=== PATIENT | female | born 1970 | race Caucasian/White ===

== ENCOUNTER 2017-10-22 19:52 | Emergency (ER) | payer OTHER ==
[~2017-10-22] VITALS: Ht 162.6 cm; Wt 70.3 kg
--- NOTE | 2017-10-22 20:05 | NUR ---
TO BED 8 A 46 YO FEMALE PATIENT BIBSELF C/O "RT PELVIC PAIN X3 DAYS WITH N/V." VSS. NAD NOTED. NONDIAPHORETIC. GOWNED. COMFORT MEASURES RENDERED.
[2017-10-22] MEDS ORDERED: ONDANSETRON HCL/PF - ER 4 MG/2 ML VIAL IV ONE (20:30)
[2017-10-22] MEDS ORDERED: MORPHINE SULFATE INJ 2 MG/ML DISP.SYRIN IV ONE (20:30)
[2017-10-22 20:36] LABS: APPEARANCE,URINE Cloudy (CLEAR); BILIRUBIN,URINE Negative (NEGATIVE); BLOOD, URINE Large Ery/uL (NEGATIVE); COLOR,URINE Amber (YELLOW); KETONES,URINE Negative (NEGATIVE); LEUKOCYTE ESTERASE ,URINE Negative (NEGATIVE); NITRITE, URINE Negative (NEGATIVE); PROTEIN,URINE 30 mg/dl (NEGATIVE); UGLUCOSE Negative (NEGATIVE); UROBILINOGEN,URINE 0.2 EU/dL (0.2)
[2017-10-22] MEDS ORDERED: MORPHINE SULFATE INJ 10 MG/ML DISP.SYRIN IM ONE (21:00)
[2017-10-22] MEDS ORDERED: PROMETHAZINE HCL 50 MG/ML AMPUL IM ONE (21:00)
[2017-10-22 21:01] LABS: BASOPHILS # (AUTO) 0.1 /CMM (0.0-0.2); BASOPHILS % (AUTO) 0.9 % (0.0-2.0); EOSINOPHILS # (AUTO) 0.3 /CMM (0.0-0.7); EOSINOPHILS % (AUTO) 2.3 % (0.0-6.0); HEMATOCRIT 35 % (33-45); HEMOGLOBIN 11.9 g/dL (11.5-14.8); LYMPHOCYTES # (AUTO) 3.6 /CMM (0.8-4.8); LYMPHOCYTES % (AUTO) 32.6 % (20.0-44.0); MEAN CORPUSCULAR HEMOGLOBIN 26 PG (26.0-33.0); MEAN CORPUSCULAR HGB CONC 34 g/dl (31.0-36.0); MEAN CORPUSCULAR VOLUME 78 fL (82-100); MONOCYTES # (AUTO) 0.5 /CMM (0.1-1.30); MONOCYTES % (AUTO) 4.9 % (2.0-12.0); NEUTROPHILS # (AUTO) 6.5 /CMM (1.8-8.9); NEUTROPHILS % (AUTO) 59.3 % (43.0-81.0); PLATELET COUNT (AUTO) 363 /CMM (150-450); RDW COEFFICIENT OF VARIATION 14.6 (11.5-15.0); RED BLOOD CELL COUNT(AUTO) 4.51 MIL/uL (4.0-5.2)
[2017-10-22] MEDS ORDERED: MORPHINE SULFATE INJ 4 MG/ML DISP.SYRIN ONE (21:01)
[2017-10-22] MEDS ORDERED: PROMETHAZINE HCL 25 MG/ML AMPUL ONE (21:01)
[2017-10-22 21:03] LABS: BACTERIA,URINE Few /HPF (None Seen); RBC,URINE TOO NUMEROUS TO COUN /HPF (0-2); SQUAMOUS EPITHELIAL CELL,UR Moderate /HPF (None Seen); URINE AMORPHOUS URATE Few /HPF (None Seen)
--- NOTE | 2017-10-22 21:05 | NUR ---
UNABLE TO INSERT SALINE LOCK AT THIS TIME. PATIENT IS HARD STICK. DR BEYER NOTIFIED.
--- NOTE | 2017-10-22 21:11 | NUR ---
MEDICATED PATIENT ORDERED BY DR BEYER.
[2017-10-22 21:17] LABS: ALBUMIN 3.9 g/dL (3.4-5.0); BILIRUBIN,TOTAL 0.2 mg/dL (0.2-1.0); CALCIUM, SERUM 8.9 mg/dL (8.5-10.1); CREATININE 0.6 mg/dL (0.6-1.3); POTASSIUM 3.5 mmol/L (3.5-5.1); TOTAL PROTEIN, SERUM 8.1 g/dL (6.4-8.2)
--- NOTE | 2017-10-22 21:18 | NUR ---
PATIENT TO RADIOLOGY.
--- NOTE | 2017-10-22 22:11 | NUR ---
Patient discharged to home in stable condition. Written and verbal after care instructions given. Patient verbalizes understanding of instruction. Patient is ambulatory with steady gait, accompanied by family. Instructed patient not to drive. vss. nad on dc. No further complaints.
[2017-10-22 22:12] VITALS: BP 118/80
== END 2017-10-22 22:13 | disposition home or self-care (01) ==
LOC: ER 19:52
DX: R10.31 Right lower quadrant pain (principal); G40.909 Epilepsy, unspecified, not intractable, without status epilepticus; G47.00 Insomnia, unspecified; Z88.8 Allergy status to other drugs, medicaments and biological substances; Z90.49 Acquired absence of other specified parts of digestive tract; Z95.0 Presence of cardiac pacemaker; Z98.890 Other specified postprocedural states; Z88.6 Allergy status to analgesic agent
CPT/HCPCS: 36415; 71045; 74176; 80048; 80076; 81001; 83690; 84703; 85025; 96372 ×2; 99285; A4606; J2270; J2405; J2550; Z7610; 81000-TC

== ENCOUNTER 2019-02-27 17:49 | Inpatient (IN) | payer OTHER ==
[~2019-02-27] VITALS: Ht 162.6 cm; Wt 74.4 kg
[2019-02-27 21:45] VITALS: BP 102/67
--- NOTE | 2019-02-27 21:45 | NUR ---
RECEIVED PATIENT FROM [facility] FOR DX INTRACTABLE ABDOMINAL PAIN. PATIENT BROUGHT IN BY [facility] VIA GURNEY. PATIENT AO X 3, ABLE TO MAKE NEEDS KNOWN. NO ACUTE DISTRESS NOTED. MONITORED FOR PAIN. IV SITE PATENT, INTACT; FLUSHED. SKIN INTACT. SAFETY REMINDERS GIVEN. ON LOW BED WITH BILATERAL UPPER SIDE RAILS UP. CALL FRANCISCO WITHIN EASY REACH. WAITING FOR ADMISSION ORDERS FROM DR. RICHARDS.
[2019-02-27] MEDS ORDERED: DIAZ10TA4 PO (22:05)
[2019-02-27] MEDS ORDERED: QUET400T5 PO (22:05)
[2019-02-27] MEDS ORDERED: FURO-145 PO (22:05)
[2019-02-27] MEDS ORDERED: GABA600T12 PO (22:05)
[2019-02-27] MEDS ORDERED: CLON0.1T PO (22:05)
[2019-02-27 22:15] VITALS: BP 102/67
[2019-02-27] MEDS ORDERED: ONDANSETRON HCL/PF 4 MG/2 ML VIAL IVP PRN (23:00)
[2019-02-27] MEDS ORDERED: MAG HYDROX/AL HYDROX/SIMETH 30 ML UDC PO PRN (23:00)
[2019-02-27] MEDS ORDERED: MAGNESIUM HYDROXIDE 30 ML UDC PO PRN (23:00)
[2019-02-27] MEDS ORDERED: ACETAMINOPHEN 325 MG TABLET PO PRN (23:00)
[2019-02-27] MEDS: LACTULOSE 10 G/15 ML UDC (PYXIS) PO SCH (23:25)
[2019-02-27] MEDS: MORPHINE SULFATE INJ 2 MG/ML DISP.SYRIN IV PRN (23:51)
--- NOTE | 2019-02-28 | NUR ---
DR. RICHARDS MADE AWARE OF PATIENT'S REQUESTS. PER , NO BENADRYL IV BUT MAY HAVE BENADRYL PO. PATIENT REJECTED BENADRYL PO ORDER. SAID NO TO DILAUDID IV; MORPHINE KEPT ORDERED. DR. RICHARDS AWARE THAT PATIENT WAS UNABLE TO TOLERATE LACTULOSE. PATIENT REFUSED ORDER OF PHENERGAN PO.
[2019-02-28] MEDS: IV D5/0.45 NACL 1,000 ML IV PRN (00:03)
[2019-02-28] MEDS: MORPHINE SULFATE INJ 2 MG/ML DISP.SYRIN IV PRN ×4 (03:58→16:57)
[2019-02-28] MEDS: LACTULOSE 10 G/15 ML UDC (PYXIS) PO SCH ×2 (05:00→11:34)
--- NOTE | 2019-02-28 06:22 | NUR ---
PATIENT AWAKE. RESPIRATIONS EVEN. MONITORED FOR PAIN. IVF INFUSING ORDERED. NEEDS ATTENDED. SAFETY PRECAUTIONS AND COMFORT MEASURES IN PLACE. WILL GIVE REPORT TO DAY SHIFT FOR CONTINUITY OF CARE.
--- NOTE | 2019-02-28 07:10 | NUR ---
MS RN NOTES PATIENT IN BED ALERT ORIENTED X 4. NO ACUTE DISTRESS NOTED. BREATHING UNLABORED. NO SOB NOTED. DENIED PAIN AT THIS TIME. IV ACCESS PATENT AND INTACT, NO REDNESS OR SWELLING NOTED. SAFETY MEASURES IN PLACE. CALL LIGHT WITHIN REACH. WILL CONTINUE TO MONITOR ACCORDINGLY.
[2019-02-28 08:00] VITALS: BP 111/62
[2019-02-28] MEDS ORDERED: ACET-868 PO (08:23)
--- NOTE | 2019-02-28 14:00 | NUR ---
MS RN NOTES FOLLOWED UP WITH PEARL HAND JOS KC REGARDING HOME MEDICATION RECONCILIATION NEEDS DONE.
[2019-02-28] MEDS: diphenhydrAMINE HCL 50 MG/ML VIAL IV PRN ×2 (14:17→20:17)
[2019-02-28] MEDS ORDERED: DIATR MEGLU/DIATRIZOATE SODIUM 120 ML BOTTLE (GASTROGRAPHIN) ONE (15:18)
[2019-02-28 16:00] VITALS: BP 111/63
[2019-02-28] MEDS ORDERED: LACTULOSE 10 G/15 ML UDC (PYXIS) PR SCH (17:00)
[2019-02-28] MEDS: LORAZEPAM INJ 2 MG/ML VIAL IV PRN (17:45)
[2019-02-28] MEDS ORDERED: LACTULOSE UDC 200 G in SODIUM CHLORIDE IRRIG SOLUTION 400 ML IR SCH (18:00)
--- NOTE | 2019-02-28 18:18 | NUR ---
MS RN NOTES RECEIVED NEW ORDERS FROM ALICIA KC WITH ORDERS TO DC LACTULOSE AR ORDER CHANGE TO DULCOLAX SUPP ONCE, FLEET MINERAL OIL ENEMA IF DULCOLAX DOESNT WORK ONCE AND TAP WATER ENEMA CHANGE IF MINERAL OIL ENEMA DOESN'T WORK ONCE, NOTED AND CARRIED OUT.
[2019-02-28] MEDS ORDERED: BISACODYL SUPP (10 MG) 10 MG/SUPP.RECT SUPP.RECT RC ONE (18:30)
[2019-02-28] MEDS ORDERED: MINERAL OIL 133 ML (PYXIS) 1 EA ENEMA RC ONE (18:30)
[2019-02-28] MEDS ORDERED: MISCELLANEOUS MED 1 EA EA XX ONE (18:30)
[2019-02-28] MEDS ORDERED: ACETAMINOPHEN 650 MG/SUPP.RECT RC PRN (18:30)
--- NOTE | 2019-02-28 18:33 | NUR ---
MS RN NOTES SEEN AND EVALUATED BY CREDENTIALER CHRISTOPH AWAN CREDENTIALER, PATIENT JUST HAD A BOWEL MOVEMENT, RECEIVED NEW ORDERS FOR COLACE AND MIRALAX AND DO NOT ADMINISTER DULCOLAX FROM CHRISTOPH AWAN CREDENTIALER, NOTED AND CARRIED OUT. NOTIFIED ALICIA KC WITH ORDERS TO CHANGE PREVIOUS ORDERS FOR DULCOLAX, FLEET MINERAL OIL ENEMA AND TAP WATER ENEMA CHANGE TO PRN, NOTED AND CARRIED OUT.
--- NOTE | 2019-02-28 18:45 | NUR ---
MS RN NOTES TRANSFER PATIENT TO ROOM 320-1 IN STABLE CONDITION, REPORT GIVEN TO ELIZABETH RN. ALL BELONGINGS BROUGHT WITH PATIENT.
[2019-02-28] MEDS ORDERED: POLYETHYLENE GLYCOL 3350 17 GM POWD.PACK PO PRN (19:00)
[2019-02-28] MEDS ORDERED: BISACODYL SUPP (10 MG) 10 MG/SUPP.RECT SUPP.RECT RC PRN (19:30)
[2019-02-28] MEDS ORDERED: MISCELLANEOUS MED 1 EA EA XX PRN (19:30)
[2019-02-28] MEDS ORDERED: MINERAL OIL 133 ML (PYXIS) 1 EA ENEMA RC PRN (19:30)
--- NOTE | 2019-02-28 19:50 | NUR ---
MS RN OPENING NOTES: RECEIVED PT FROM [facility]. SIGNIFICANT MEMBER AT BEDSIDE. PT HAS IV AND PT IS REQUESTING FOR A BREAK TO BE INFUSING WITH IV D51/2 NS AT 75ML/HR. PT IS REQUESTING FOR PAIN MEDICATION SPECIFICALLY MORPHINE. INFORMED HER THAT MORPHINE HAS BEEN DISCONTINUED BY COURT CRIER JOS KC. PT IS VERBALIZING THAT SHE IS STILL HAVE ABDOMINAL 8/10 PAIN. ALSO, PT IS VERBALIZING THAT THE BOWEL MOVEMENT SHE HAD EARLIER WAS "HARD." NO SOB NOTED. BED KEPT IN LOW, LOCKED POSITION, AND SIDE RAILS X 2UP. WILL CONTINUE TO MONITOR PT.
[2019-02-28 20:00] VITALS: BP 103/68
--- NOTE | 2019-02-28 20:18 | NUR ---
MS RN NOTES: PT COMPLAINING OF FEELING NAUSEOUS AND THAT BENADRYL IS THE ONLY THING THAT WORKS FOR HE SHE IS ALLERGIC TO ZOFRAN. PT WAS ADMINISTERED BENADRYL 25MG IV. WILL CONTINUE TO MONITOR.
[2019-02-28] MEDS: HYDROCODONE/APAP 5/325MG 1 EACH TABLET PO PRN (20:55)
--- NOTE | 2019-02-28 20:56 | NUR ---
MS RN NOTES: PT COMPLAINING OF 8/10 AB PAIN AND IS CRYING. PT WANTS SOMETHING FOR PAIN. PT UPSET THAT MORPHINE WAS DISCONTINUED. EXPLAINED TO HER THE REASON FOR THAT. ALSO EXPLAINED TO HER THAT NORCO WILL CAUSE CONSTIPATION. WHEN ASKED PT IF SHE IS HAVING CONSTIPATION, "I'M NOT CONSTIPATED." PT STILL WANTS NORCO. PT WAS ADMINISTERED NORCO 5 PO. INFORMED HER THAT I CAN OFFER HER A SUPPOSITORY. PT DOES NOT WANT IT. WILL CONTINUE TO MONITOR.
--- NOTE | 2019-02-28 21:38 | NUR ---
MS RN NOTES: PT IS CLAIMING THAT SHE HAD PAGED FOR ME. WHEN ASKED BUSINESS INTELLIGENCE ETL DEVELOPER UP FRONT, NOBODY FROM [facility] CALLED. PT WAS VERBALIZING THAT SHE CALLED FOR ME AND THAT SHE HAD THREW UP AND SHE HAS FLUSHED IT ALREADY. PT WAS GIVEN ICE CHIPS.
--- NOTE | 2019-02-28 22:22 | NUR ---
MS RN NOTES: INFORMED DR. MAURICE Collado THAT PT IS SAYING THAT NORCO IS NOT WORKING FOR HER AND THAT SHE IS WONDERING WHY THE MORPHINE GOT DISCONTINUED. EXPLAINED TO HER THAT TUNNEL KILN REPAIRER YAMINI DISCONTINUED THE MORPHINE AND THAT FOLLOW THROUGH WAS NEGATIVE . DR. MAURICE Collado DOES NOT WANT TO ORDER ANY IV PAIN MEDS. DR. RICHARDS ALSO DOES NOT WANT TO CONTINUE TO THE SEROQUEL 400MG FOR SLEEP. Addendum: 02/28/19 at 1 by VENUS BAINS RN PER DR. MAURICE Collado, NO NEW ORDERS AT THIS TIME.
[2019-03-01 00:03] VITALS: BP 120/66
[2019-03-01] MEDS: LORAZEPAM INJ 2 MG/ML VIAL IV PRN ×3 (00:04→12:12)
--- NOTE | 2019-03-01 00:07 | NUR ---
MS RN NOTES: PT FEELING VERY ANXIOUS AND IS NOT ABLE TO SLEEP. PT WAS ADMINISTERED ATIVAN 0.5MG IV. WILL CONTINUE TO MONITOR.
[2019-03-01 01:02] VITALS: BP 109/77
[2019-03-01] MEDS: HYDROCODONE/APAP 5/325MG 1 EACH TABLET PO PRN ×2 (01:04→08:42)
--- NOTE | 2019-03-01 01:05 | NUR ---
MS RN NOTES: PT COMPLAINING OF ALL OVER ABDOMEN PAIN 05/17. PT WAS ADMINISTERED NORCO 5 PO. ALSO EXPLAINED TO PT THAT SIDE EFFECTS OF THIS MEDICATION CAUSES CONSTIPATION BUT PT IS STILL ADAMANT ABOUT TAKING IT SHE IS IN PAIN AND CANNOT SLEEP. INFORMED PT WELL THAT THERE ARE PRN MEDICATIONS THAT CAN BE ADMINISTERED TO HER IF SHE FEELS CONSTIPATED. WILL CONTINUE TO MONITOR.
[2019-03-01 02:02] VITALS: BP 110/71
[2019-03-01] MEDS: diphenhydrAMINE HCL 50 MG/ML VIAL IV PRN ×2 (02:18→08:45)
--- NOTE | 2019-03-01 02:21 | NUR ---
MS RN NOTES: PT COMPLAINING OF ITCHINESS ALL OVER HER BODY AND VERBALIZES "PRIMARILY MY VAGINA." PT WAS ADMINISTERED BENADRYL 25MG IV. WILL CONTINUE TO MONITOR.
[2019-03-01] MEDS: IV D5/0.45 NACL 1,000 ML IV PRN (03:01)
[2019-03-01 06:05] VITALS: BP 117/72
--- NOTE | 2019-03-01 06:13 | NUR ---
MS RN NOTES: PT WAKING UP AND FEELING ANXIOUS. SHE SAYS SHE GETS PANIC ATTACKS WHILE IN THE HOSPITAL. PT WAS ADMINISTERED ATIVAN 0.5MG IV. WILL CONTINUE TO MONITOR. PT ALSO WANTS TO BE DISCONNECTED FROM IV FLUIDS FOR NOW SHE WOULD LIKE TO BE RELIEVED FOR SOME TIME.
--- NOTE | 2019-03-01 06:14 | NUR ---
RN NOTES: URINE COLLECTED AND PLACED IN REFRIGERATOR.
--- NOTE | 2019-03-01 06:41 | NUR ---
MS RN CLOSING NOTES: ALL NEEDS WERE ATTENDED AND ANTICIPATED FOR. PT KEPT CLEAN, DRY, AND COMFORTABLE. PT SITTING UP AND ON HER PHONE AT THIS TIME. IV REMAINS INTACT IN R AC. PT NOT CONNECTED RIGHT NOW AND WOULD LIKE TO BE CONNECTED AT A LATER TIME. BED KEPT IN LOW, LOCKED POSITION, AND SIDE RAILS X 2UP. WILL ENDORSE TO AM NURSE FOR ENA. Addendum: 03/01/19 at 0716 by VENUS BAINS RN MENTIONED TO PT AGAIN THAT SHE HAS PRN MEDICATIONS TO HELP HER HAVE A BM. PT REFUSING AT THIS TIME.
--- NOTE | 2019-03-01 07:28 | NUR ---
MS RN OPENING NOTES RECEIVED PT RESTING IN BED. AWAKE A/O X4. TOLERATING RA, WITH NO ACUTE RESPIRATORY DISTRESS NOTED. PT DENIES PAIN AT THIS MOMENT. PT ALSO DENIES ANY CONCERNS OR ANY QUESTIONS AT THIS TIME.IVF D5 1/2 NS AT 75ML/HR TO RAC G20, INTACT AND FLUID INFUSING WELL. PT KEPT COMFORTABLE. PT'S BED IN LOWEST, LOCKED POSITION WITH SR X2. CALL LIGHT AND FLUID WITHIN REACH WILL CONTINUE PLAN OD CARE.
[2019-03-01 08:00] VITALS: BP 112/71
[2019-03-01 08:05] LABS: APPEARANCE,URINE SL CLOUDY (CLEAR); BILIRUBIN,URINE NEGATIVE (NEGATIVE); BLOOD, URINE NEGATIVE Ery/uL (NEGATIVE); COLOR,URINE DARK YELLO (YELLOW); KETONES,URINE NEGATIVE (NEGATIVE); LEUKOCYTE ESTERASE ,URINE NEGATIVE (NEGATIVE); NITRITE, URINE NEGATIVE (NEGATIVE); PH,URINE 6.5 (5.0-8.0); PROTEIN,URINE TRACE mg/dl (NEGATIVE); UGLUCOSE NEGATIVE (NEGATIVE); UROBILINOGEN,URINE 0.2 EU/dL (0.2)
[2019-03-01 08:14] LABS: BACTERIA,URINE Rare /HPF (None Seen); CALCIUM OXALATE CRYSTALS,UR Few /HPF (None Seen); MUCUS,URINE Moderate /LPF (None Seen); RBC,URINE NONE SEEN /HPF (0-2); SQUAMOUS EPITHELIAL CELL,UR Few /HPF (None Seen); WBC,URINE 0-2 /HPF (0-3)
[2019-03-01] MEDS ORDERED: DOCUSATE SODIUM 100 MG CAPSULE PO SCH (09:00)
--- NOTE | 2019-03-01 13:25 | NUR ---
MS LINE DANCER NOTES PT TO DISCHARGE HOME PER REQUEST. POLITICAL SCIENCE CHAIR AP AWARE AND OKAY WITH IT. DISCHARGE NOTES SIGNED BY POLITICAL SCIENCE CHAIR AP. PT TOLERATING RA WITH NO ACUTE RESPIRATORY DISTRESS NOTED. PT DENIES ANY PAIN AT THE MOMENT. PT'S SKIN INTACT; REFUSES TO TAKE ANY PICTURES FOR BRUISE ON RAC NEAR IV SITE. PIV TO RAC REMOVED BY JOSEPHINE/HORACIO AND APPLIED DRY DRESSING. REVIEWED AND SIGNED DISCHARGE INSTRUCTIONS AND INVENTORY LIST. ALL BELONGINGS WITH THE PT.ALL NEEDS AND CARE PROVIDED. PT ACCOMPANIED BY . PT LEFT THE UNIT AT 1315, ESCORTED TO THE LOBBY BY RN/ME. LONNIE AND POLITICAL SCIENCE CHAIR/AP AWARE OF DISCHARGE.
== END 2019-03-01 13:10 | disposition home or self-care (01) | DRG 254 ==
LOC: MEDSG2 21:38 → MED 02-28 18:23
PROVIDERS: ATTEND Hospitalist
DX: K58.1 Irritable bowel syndrome with constipation (principal); G40.909 Epilepsy, unspecified, not intractable, without status epilepticus; G47.00 Insomnia, unspecified; Z95.0 Presence of cardiac pacemaker; Z90.49 Acquired absence of other specified parts of digestive tract; Z76.5 Malingerer [conscious simulation]; Z91.14 Patient's other noncompliance with medication regimen; Z91.041 Radiographic dye allergy status
CPT/HCPCS: 74250-TC; 81000-TC; 84703-TC; 87081-TC; G0378; J1200; J2060; J2270; J3490; J7042; Q9963

== ENCOUNTER 2019-03-03 11:39 | Emergency (ER) | payer OTHER ==
[~2019-03-03] VITALS: Ht 162.6 cm; Wt 72.6 kg
[~2019-03-03 11:39] MED LIST: ACET-868 PO; CLON0.1T PO; DIAZ10TA4 PO; FURO-145 PO; GABA600T12 PO; QUET400T5 PO
[2019-03-03 11:45] VITALS: BP 125/74
--- NOTE | 2019-03-03 12:07 | NUR ---
CALLED , TRANSFERRED CALL TO .
--- NOTE | 2019-03-03 12:28 | NUR ---
Patient discharged to home in stable condition. Written and verbal after care instructions given. Patient verbalizes understanding of instruction.
== END 2019-03-03 12:27 | disposition home or self-care (01) ==
LOC: ER 11:41
DX: K59.00 Constipation, unspecified (principal); I49.9 Cardiac arrhythmia, unspecified; Z95.0 Presence of cardiac pacemaker; Z90.49 Acquired absence of other specified parts of digestive tract; Z88.6 Allergy status to analgesic agent; Z88.8 Allergy status to other drugs, medicaments and biological substances; Z79.899 Other long term (current) drug therapy

== ENCOUNTER 2019-05-03 08:35 | Emergency (ER) | payer OTHER ==
[~2019-05-03] VITALS: Ht 165.1 cm; Wt 72.6 kg
[2019-05-03] MEDS ORDERED: VANCOMYCIN 1 GM in IV D5W 250 ML IV ONE (09:00)
[2019-05-03] MEDS ORDERED: DIPHENHYDRAMINE HCL 12.5 MG/5 ML UDC PO ONE (09:00)
--- NOTE | 2019-05-03 09:00 | NUR ---
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 On room air, breathing evenly and unlabored. Connected to the monitor and pulse ox. Ambulatory with steady gait. Kept comfortable, will continue to monitor accordingly.
[2019-05-03] MEDS ORDERED: diphenhydrAMINE HCL 25 MG CAPSULE ONE (09:01)
[2019-05-03] MEDS ORDERED: diphenhydrAMINE HCL 50 MG/ML VIAL ONE (09:04)
[2019-05-03] MEDS ORDERED: PROMETHAZINE HCL 25 MG TABLET PO ONE (10:30)
--- NOTE | 2019-05-03 11:45 | NUR ---
IV removed. Catheter intact and site benign. Pressure and 4x4 applied to site. No bleeding noted. Patient discharged to home in stable condition. Written and verbal after care instructions given. Patient verbalizes understanding of instruction.
[2019-05-03 12:00] VITALS: BP 119/82
== END 2019-05-03 12:40 | disposition home or self-care (01) ==
LOC: ER 08:40
DX: L03.032 Cellulitis of left toe (principal); L03.031 Cellulitis of right toe; Z95.0 Presence of cardiac pacemaker; Z90.49 Acquired absence of other specified parts of digestive tract; Z88.6 Allergy status to analgesic agent; Z88.8 Allergy status to other drugs, medicaments and biological substances; Z79.899 Other long term (current) drug therapy
CPT/HCPCS: 96365; 99283; J1200; J3370; J7060; Q0163 ×2; Q0169

== ENCOUNTER 2019-05-13 11:26 | Emergency (ER) | payer OTHER ==
[~2019-05-13] VITALS: Ht 162.6 cm; Wt 72.6 kg
--- NOTE | 2019-05-13 11:51 | NUR ---
patient came in to the ER with the c/c of chest pressure started around 945am, non radiating. On room air, breathing evenly and unlabored. Connected to the monitor and pulse ox. kept comfortable, will continue to monitor accordingly.
[2019-05-13] MEDS ORDERED: ONDANSETRON HCL/PF 4 MG/2 ML VIAL IV ONE (12:00)
[2019-05-13] MEDS ORDERED: diphenhydrAMINE HCL 50 MG/ML VIAL IV ONE (12:00)
[2019-05-13] MEDS ORDERED: IV NS 0.9% 1,000 ML BAG IV ONE (12:00)
[2019-05-13] MEDS ORDERED: ONDANSETRON HCL/PF 4 MG/2 ML VIAL ONE ×2 (13:17→14:29)
[2019-05-13] MEDS ORDERED: diphenhydrAMINE HCL 50 MG/ML VIAL ONE (13:17)
[2019-05-13] MEDS ORDERED: MORPHINE SULFATE INJ 2 MG/ML DISP.SYRIN ONE ×2 (13:39→15:41)
--- NOTE | 2019-05-13 13:45 | NUR ---
PATIENTAWAKE ALERT PAIN TO ABDOMEN NOTED MULTIPLE BRUISES TO BILATERAL STATED PREVIOUS IV INSERTION ,PATIENT IS DIFFICULT STICK HEPLOCK OBTAINED BY MILADYS RN ,FISHING HAND @ BEDSIDE FOR LAB DRAW
[2019-05-13] MEDS ORDERED: MORPHINE SULFATE INJ 2 MG/ML DISP.SYRIN IV ONE ×2 (14:00→15:30)
[2019-05-13 14:31] LABS: BASOPHILS # (AUTO) 0.1 /CMM (0.0-0.2); BASOPHILS % (AUTO) 0.7 % (0.0-2.0); EOSINOPHILS % (AUTO) 6.5 % (0.0-6.0); HEMATOCRIT 33 % (33-45); HEMOGLOBIN 10.7 g/dL (11.5-14.8); LYMPHOCYTES # (AUTO) 2.8 /CMM (0.8-4.8); LYMPHOCYTES % (AUTO) 32.1 % (20.0-44.0); MEAN CORPUSCULAR HGB CONC 33 g/dl (31.0-36.0); MEAN CORPUSCULAR VOLUME 80 fL (82-100); MONOCYTES # (AUTO) 0.6 /CMM (0.1-1.30); MONOCYTES % (AUTO) 6.5 % (2.0-12.0); NEUTROPHILS # (AUTO) 4.6 /CMM (1.8-8.9); NEUTROPHILS % (AUTO) 54.2 % (43.0-81.0); PLATELET COUNT (AUTO) 275 /CMM (150-450); RED BLOOD CELL COUNT(AUTO) 4.13 MIL/uL (4.0-5.2); WHITE BLOOD COUNT (AUTO) 8.6 K/uL (4.3-11.0)
[2019-05-13] MEDS: ONDANSETRON HCL/PF 4 MG/2 ML VIAL IV ONE ×2 (14:31→15:08)
[2019-05-13 14:40] LABS: CALCIUM, SERUM 8.6 mg/dL (8.5-10.1); CARBON DIOXIDE 24 mmol/L (21-32); CHLORIDE 107 mmol/L (98-107); CREATININE 0.6 mg/dL (0.6-1.3); GLUCOSE 105 mg/dL (74-106); POTASSIUM 3.4 mmol/L (3.5-5.1); SODIUM SERUM 142 mmol/L (136-145); UREA NITROGEN, BLOOD 12 mg/dL (7-18)
--- NOTE | 2019-05-13 14:53 | NUR ---
PATIENT COMPLAIN OF NAUSEA PROVIDER AWARE ,PATIENT REFUSE ZOFRAN @ THIS TIME WOULD BENADRYL IVP SHE REQUESTED FOR PROVIDER AND SHES AWARE
[2019-05-13 14:55] LABS: ALANINE AMINOTRANSFERASE 26 U/L (12-78); ALBUMIN 3.4 g/dL (3.4-5.0); ALKALINE PHOSPHATASE 160 U/L (46-116); ASPARTATE AMINOTRANSFERASE 18 U/L (15-37); BILIRUBIN,DIRECT 0.1 mg/dL (0.0-0.2); BILIRUBIN,TOTAL 0.3 mg/dL (0.2-1.0); LIPASE 208 U/L (73-393); TOTAL PROTEIN, SERUM 6.8 g/dL (6.4-8.2)
[2019-05-13] MEDS ORDERED: diphenhydrAMINE HCL 25 MG CAPSULE PO ONE (15:00)
[2019-05-13] MEDS ORDERED: PROMETHAZINE HCL 25 MG TABLET PO SCH (15:30)
[2019-05-13] MEDS ORDERED: diphenhydrAMINE HCL 25 MG CAPSULE ONE (15:41)
[2019-05-13] MEDS ORDERED: AZITHROMYCIN 250 MG TABLET ONE (16:25)
[2019-05-13] MEDS ORDERED: AZITHROMYCIN 250 MG TABLET PO ONE (16:30)
--- NOTE | 2019-05-13 16:34 | NUR ---
PATIENT DC HOME INTRUCTION GIVEN AGREES TO CALL pmd IN 2 DAYS VERBALIZED UNDERSTANDING HER FREIND @ BEDSIDE NOTED rt aC HEPLOCK NOTED NO EDEMA NO SWELLING NO PAIN
--- NOTE | 2019-05-13 16:47 | NUR ---
PATIENT AWAKE ALERT COMPLAIN OF ITCHING TO HER BACK STATED ,HER VITALS TAKEN AND FILED NO WHEEZING dr. Vu @ BEDSIDE
[2019-05-13] MEDS ORDERED: cetrizine 10 MG TABLET ONE (16:53)
[2019-05-13] MEDS ORDERED: cetrizine 10 MG TABLET PO ONE (17:00)
--- NOTE | 2019-05-13 17:05 | NUR ---
Patient discharged to home in stable condition. Written and verbal after care instructions given. Patient verbalizes understanding of instruction.IV removed. Catheter intact and site benign. Pressure and 4x4 applied to site. No bleeding noted.
[2019-05-13 17:07] VITALS: BP 115/75
== END 2019-05-13 17:10 | disposition home or self-care (01) ==
LOC: ER 11:26
DX: A08.39 Other viral enteritis (principal); R19.7 Diarrhea, unspecified; R00.0 Tachycardia, unspecified; F41.9 Anxiety disorder, unspecified; R56.9 Unspecified convulsions; F90.9 Attention-deficit hyperactivity disorder, unspecified type; Z90.49 Acquired absence of other specified parts of digestive tract; Z95.0 Presence of cardiac pacemaker; Z88.9 Allergy status to unspecified drugs, medicaments and biological substances; Z88.6 Allergy status to analgesic agent; Z88.8 Allergy status to other drugs, medicaments and biological substances
CPT/HCPCS: 36415; 71045; 74176; 80048; 80076; 83690; 84484; 85025; 85730; 93005; 96361; 96374; 96375; 96376; 99284; J1200; J2270 ×2; J2405 ×2; J7030; Q0163; Q0169